=== PATIENT | female | born 1955 | race Caucasian/White ===

== ENCOUNTER 2017-03-27 19:58 | Inpatient (IN) | payer MEDICAID ==
[~2017-03-27] VITALS: Ht 152.4 cm; Wt 70.3 kg
[2017-03-27 20:19] VITALS: Ht 152.4 cm; Wt 70.3 kg
[2017-03-27 22:49] LABS: BASOPHIL % 0.3 % (0-2); PLATELET COUNT 244 x10^3mcL (130-400); RED CELL DISTRIBUTION WIDTH 14.2 % (11.5-14.5)
[2017-03-27 22:53] LABS: microscopic required? YES; urine erythrocyte 2+ (NEGATIVE)
[2017-03-27 23:04] LABS: ALBUMIN 3.6 g/dL (3.4-5.0); ALKALINE PHOSPHATASE 71 U/L (46-116); ALT/SGPT 42 U/L (14-59); AST/SGOT 29 U/L (15-37); BILIRUBIN TOTAL 0.8 mg/dL (0.20-1.00); CALCIUM 8.3 mg/dL (8.5-10.1); CARBON DIOXIDE 28.1 mmol/L (21-32); CHLORIDE SERUM 99 mmol/L (98-107); CREATININE SERUM 0.7 mg/dL (0.6-1.0); GFR1 > 60 mL/min; GLUCOSE SERUM 115 mg/dL (74-106); SODIUM SERUM 138 mmol/L (136-145); T4(THYROXINE) 7.8 ug/dL (4.7-13.3); TOTAL PROTEIN, SERUM 7.9 g/dL (6.4-8.2)
[2017-03-27 23:21] LABS: POTASSIUM SERUM 2.7 mmol/L (3.5-5.1)
[2017-03-27] MEDS ORDERED: ZES20 PO (23:45)
[2017-03-27] MEDS ORDERED: GOOD SENSE ASPI81 M3 PO (23:45)
[2017-03-27] MEDS ORDERED: LEVOTHYROXINE0.05 M2 PO (23:45)
[2017-03-27] MEDS ORDERED: MASON NATURAL1000 IU PO (23:46)
[2017-03-27] MEDS ORDERED: TOPROL XL25 MG PO (23:46)
[2017-03-27] MEDS ORDERED: METFORMIN HYDR500 M1 PO (23:46)
[2017-03-28 00:45] VITALS: BP 144/58
[2017-03-28 01:11] VITALS: BP 144/52
[2017-03-28 01:17] LABS: MAGNESIUM 2.1 mg/dL (1.8-2.4); PHOSPHOROUS 3.2 mg/dL (2.5-4.9)
[2017-03-28] MEDS ORDERED: HCTZ/LISINOPRIL1 TA2 PO (03:44)
[2017-03-28 05:40] VITALS: BP 141/82
[2017-03-28 06:31] LABS: PLATELET COUNT 216 x10^3mcL (130-400); RED CELL DISTRIBUTION WIDTH 13.9 % (11.5-14.5)
[2017-03-28 06:43] LABS: CALCIUM 7.8 mg/dL (8.5-10.1); CHLORIDE SERUM 103 mmol/L (98-107); CREATININE SERUM 0.7 mg/dL (0.6-1.0); GFR1 > 60 mL/min; GLUCOSE SERUM 174 mg/dL (74-106); POTASSIUM SERUM 3.7 mmol/L (3.5-5.1); SODIUM SERUM 142 mmol/L (136-145)
[2017-03-28 06:49] LABS: AMPHETAMINE QUAL UR NONE DETECTED (NEG <=1000)
[2017-03-28 09:21] LABS: SEGMENTED NEUTROPHILS 74 % (37-75)
[2017-03-28 09:22] LABS: BAND NEUTROPHIL 6 % (0-10); BASOPHIL 0 % (0-2); MONOCYTE 2 % (0-7); rbc morphology (normal/abnorm) ABNORMAL (NORMAL)
[2017-03-28 09:23] LABS: PLATELET MORPHOLOGY N
[2017-03-28 09:47] VITALS: BP 126/51
[2017-03-28] MEDS ORDERED: TAM75 PO (11:41)
[2017-03-28 12:39] VITALS: BP 126/51
[2017-03-28] MEDS ORDERED: ROBL PO (12:48)
[2017-03-28 12:51] VITALS: BP 142/58
[2017-03-28] MEDS ORDERED: CLINDAMYCIN HC300 MG PO (13:25)
[2017-03-28] MEDS ORDERED: LEVOFLOXACIN500 M1 PO (13:25)
[2017-03-28] MEDS ORDERED: LAC PO (13:25)
== END 2017-03-28 15:35 | disposition home or self-care (01) | DRG 137 ==
LOC: ED 19:58 → DU 23:34
PROVIDERS: Emergency Medicine; Family Medicine
DX: J69.0 Pneumonitis due to inhalation of food and vomit (principal); D68.69 Other thrombophilia; J09.X2 Influenza due to identified novel influenza A virus with other respiratory manifestations; E11.9 Type 2 diabetes mellitus without complications; I10 Essential (primary) hypertension; E87.6 Hypokalemia; E03.9 Hypothyroidism, unspecified; E78.5 Hyperlipidemia, unspecified; M19.90 Unspecified osteoarthritis, unspecified site; Z68.30 Body mass index [BMI] 30.0-30.9, adult; Z79.82 Long term (current) use of aspirin; Z79.84 Long term (current) use of oral hypoglycemic drugs
CPT/HCPCS: 36600; 82962; 83880; 87804; 94150; J1956; J2930; J3480; J7030; J7040; J7613; J7620; J7644; Q0092

== ENCOUNTER 2018-04-18 00:38 | Emergency (ER) | payer BC ==
[~2018-04-18] VITALS: Ht 157.5 cm; Wt 83.9 kg
[~2018-04-18 00:38] MED LIST: CLINDAMYCIN HC300 MG PO; GOOD SENSE ASPI81 M3 PO; HCTZ/LISINOPRIL1 TA2 PO; LAC PO; LEVOFLOXACIN500 M1 PO; LEVOTHYROXINE0.05 M2 PO; MASON NATURAL1000 IU PO; METFORMIN HYDR500 M1 PO; ROBL PO; TAM75 PO; TOPROL XL25 MG PO; ZES20 PO
[2018-04-18 00:42] VITALS: Ht 157.5 cm; Wt 83.9 kg
[2018-04-18 03:11] VITALS: BP 133/73
== END 2018-04-18 03:11 | disposition home or self-care (01) ==
LOC: ED 00:38
DX: J20.9 Acute bronchitis, unspecified (principal); I10 Essential (primary) hypertension; E11.9 Type 2 diabetes mellitus without complications; M19.90 Unspecified osteoarthritis, unspecified site; M54.6 Pain in thoracic spine; Z88.0 Allergy status to penicillin
CPT/HCPCS: J1885; Q0092